=== PATIENT | female | born 2000 | race African-American/Black ===

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

== ENCOUNTER 2020-07-13 12:14 | Emergency (ER) | payer MEDICAID ==
[~2020-07-13] VITALS: Ht 149.9 cm; Wt 70.0 kg
[2020-07-13] MEDS ORDERED: BACITRACIN ZINC OINT UDPKT TOP ONE (14:15)
[2020-07-13] MEDS ORDERED: LIDOCAINE 1%/EPI 1:100,000 10 ML VIAL IJ ONE (14:15)
[2020-07-13] MEDS ORDERED: IBUPROFEN 600MG TABLET PO ONE (14:15)
[2020-07-13 14:26] VITALS: BP 113/74
== END 2020-07-13 15:28 | disposition home or self-care (01) ==
LOC: ER 12:14
DX: S71.111A Laceration without foreign body, right thigh, initial encounter (principal); W22.09XA Striking against other stationary object, initial encounter; Y93.89 Activity, other specified; Y92.013 Bedroom of single-family (private) house as the place of occurrence of the external cause
CPT/HCPCS: 12002; 99283; J3490

== ENCOUNTER 2020-07-29 16:08 | Emergency (ER) | payer MEDICAID ==
[~2020-07-29] VITALS: Ht 149.9 cm; Wt 61.0 kg
[2020-07-29 16:31] VITALS: BP 96/51
== END 2020-07-29 17:55 | disposition home or self-care (01) ==
LOC: ER 16:08
DX: Z48.02 Encounter for removal of sutures (principal)
CPT/HCPCS: 99281